=== PATIENT | female | born 1950 | race Caucasian/White ===

== ENCOUNTER 2019-07-24 03:14 | Inpatient (IN) ==
[2019-07-24] MEDS ORDERED: Isovue-370 500 ML BOTTLE IVP ONE ×2 (04:16→04:18)
[2019-07-24] MEDS ORDERED: *HR* FentaNYL (PF) 100 MCG/2 ML VIAL IVP ONE ×2 (04:22→06:20)
[2019-07-24] MEDS ORDERED: Ondansetron 4 MG/2 ML VIAL IVP PRN (04:22)
[2019-07-24] MEDS ORDERED: 0.9 % Sodium Chloride 1,000 ML IVC ONE ×2 (04:22→05:54)
[2019-07-24 04:38] LABS: Hemoglobin 12.8 g/dL (11.5-15.4); Immature Granulocytes % 0.4 % (0-4); Lymphocytes # 0.5 K/mcL (0.6-4.6); Lymphocytes % 5.9 %; Mean Corpuscular Hemoglobin 27.9 pg (28.0-33.3); Mean Corpuscular Volume 87.3 fL (83.0-100.0); Mean Platelet Volume 9.7 fL (9.4-12.4); Monocytes # 0.4 K/mcL (0.0-1.3); Monocytes % 4.5 %; Neutrophils # 7.5 K/mcL (1.6-8.9); Platelet Count 220 K/mcL (140-400); Red Blood Count 4.58 M/mcL (3.82-4.97); Segmented Neutrophils % 89.2 %; White Blood Count 8.4 K/mcL (4.3-11.1)
[2019-07-24 04:42] LABS: INR 1.1; Prothrombin Time 12.8 Seconds (9.4-12.1)
[2019-07-24 04:45] LABS: Activated Partial Thrombo Time 30.1 Seconds (26.0-36.0)
[2019-07-24 05:02] LABS: Alanine Aminotransferase 92 Units/L (7-52); Albumin/Globulin Ratio 1.2 (1.1-2.2); Alkaline Phosphatase 340 Units/L (34-104); Aspartate Amino Transferase 272 Units/L (13-39); BUN/Creatinine Ratio 20 (6-26); Bilirubin,Direct 0.3 mg/dL (0.0-0.2); Bilirubin,Indirect 0.6 mg/dL (0.0-1.0); Bilirubin,Total 0.9 mg/dL (0.3-1.0); Blood Urea Nitrogen 17 mg/dL (8-23); Calcium 9.3 mg/dL (8.6-10.3); Carbon Dioxide 23 mEq/L (23-29); Chloride 104 mEq/L (98-107); Globulin 3.3 g/dL (2.4-3.5); Glucose 170 mg/dL (70-105); Lipase 303 Units/L (11-82); Osmolality,Calculated 290 (280-300); Potassium 3.5 mEq/L (3.5-5.1); Sodium 137 mEq/L (136-145); Total Protein 7.3 g/dL (6.4-8.9); Troponin I < 0.03 ng/mL (< 0.04); eGFR For African Americans > 60 (> 60); eGFR For Non-African Americans > 60 (> 60)
[2019-07-24] MEDS: Piperacillin/Tazobactam 3.375 GM in 0.9 % Sodium Chloride Mini Bag 100 ML IVPB SCH ×2 (07:10→16:09)
[2019-07-24] MEDS ORDERED: *HR* HYDROmorphone 2 MG TABLET PO PRN (08:08)
[2019-07-24] MEDS ORDERED: Famotidine 20 MG/2 ML VIAL IVP ONE (08:08)
[2019-07-24] MEDS ORDERED: *HR* OxyCODONE Immed Rel 5 MG TABLET PO PRN (08:08)
[2019-07-24] MEDS ORDERED: *HR* HYDROmorphone PF 0.5 MG/0.5 ML SYRINGE IVP PRN (08:08)
[2019-07-24] MEDS ORDERED: Pregabalin 75 MG CAPSULE PO ONE (08:08)
[2019-07-24] MEDS ORDERED: *HR* Promethazine 25 MG/ML VIAL IVP PRN (08:08)
[2019-07-24] MEDS ORDERED: *HR* Labetalol 20 MG/4 ML SYRINGE IVP PRN (08:08)
[2019-07-24] MEDS ORDERED: Acetaminophen IV 1,000 MG/100 ML INFUS..BTL IVPB ONE (08:08)
[2019-07-24] MEDS ORDERED: *HR* Succinylcholine 200 MG/10 ML VIAL IVP ONE (08:27)
[2019-07-24] MEDS ORDERED: *HR* Rocuronium Bromide 50 MG/5 ML VIAL ONE ×2 (08:27→10:41)
[2019-07-24] MEDS ORDERED: Ondansetron 4 MG/2 ML VIAL ONE (08:28)
[2019-07-24] MEDS ORDERED: Lidocaine -MPF 2% 2 ML VIAL ONE (08:28)
[2019-07-24] MEDS ORDERED: *HR* Phenylephrine 10 MG/ML VIAL ONE (08:28)
[2019-07-24] MEDS ORDERED: *HR* Midazolam HCl 2 MG/2 ML VIAL ONE (08:28)
[2019-07-24] MEDS ORDERED: *HR* Propofol 200 MG/20 ML VIAL IVP ONE (08:28)
[2019-07-24] MEDS ORDERED: Dexamethasone 4 MG/ML VIAL ONE (08:28)
[2019-07-24] MEDS ORDERED: *HR* PHENYLEPHRINE 1,000 MCG/10 ML SYRINGE IVP ONE (08:28)
[2019-07-24] MEDS ORDERED: *HR* FentaNYL (PF) 100 MCG/2 ML VIAL ONE (08:28)
[2019-07-24] MEDS ORDERED: Albumin Human 5% 0 GM/0 ML IV.SOLN ONE (08:33)
[2019-07-24] MEDS ORDERED: *HR* Vasopressin 20 UNIT/ML VIAL ONE (08:34)
[2019-07-24] MEDS ORDERED: D5% in Water 0 ML ONE (08:34)
[2019-07-24] MEDS ORDERED: *HR* Norepinephrine 4 MG/4 ML VIAL IVC ONE (08:34)
[2019-07-24] MEDS ORDERED: Acetaminophen IV 1,000 MG/100 ML INFUS..BTL ONE (09:38)
[2019-07-24] MEDS ORDERED: Famotidine 20 MG/2 ML VIAL ONE (09:38)
[2019-07-24] MEDS ORDERED: *HR* HYDROMORPHONE 2 MG/ML VIAL ONE (10:27)
[2019-07-24] MEDS ORDERED: Lidocaine -MPF 4% 5 ML AMPUL ONE (11:03)
[2019-07-24] MEDS: Ondansetron 4 MG/2 ML VIAL IVP PRN (13:43)
[2019-07-24] MEDS: 0.9 % Sodium Chloride 1,000 ML IVC SCH (13:45)
[2019-07-24] MEDS: *HR* Heparin 5,000 UNIT/ML VIAL SQ SCH (16:07)
[2019-07-24] MEDS: Ketorolac 15 MG/ML VIAL IVP PRN (16:08)
[2019-07-24] MEDS: Acetaminophen IV 1,000 MG/100 ML INFUS..BTL IVPB SCH (18:05)
[2019-07-25] MEDS: 0.9 % Sodium Chloride 1,000 ML IVC SCH ×3 (00:10→13:45)
[2019-07-25] MEDS: Acetaminophen IV 1,000 MG/100 ML INFUS..BTL IVPB SCH ×4 (00:12→18:24)
[2019-07-25] MEDS: Piperacillin/Tazobactam 3.375 GM in 0.9 % Sodium Chloride Mini Bag 100 ML IVPB SCH ×4 (00:15→23:16)
[2019-07-25] MEDS: *HR* Heparin 5,000 UNIT/ML VIAL SQ SCH ×4 (00:15→23:18)
[2019-07-25 06:39] LABS: Hematocrit 33.7 % (35.3-44.9); Mean Corpuscular HGB Conc 32.3 g/dL (31.6-35.5); Mean Corpuscular Hemoglobin 28.3 pg (28.0-33.3); Mean Corpuscular Volume 87.5 fL (83.0-100.0); Mean Platelet Volume 10.4 fL (9.4-12.4); Platelet Count 171 K/mcL (140-400); Red Blood Count 3.85 M/mcL (3.82-4.97); Red Cell Distribution Width 13.4 % (11.5-14.5)
[2019-07-25 06:42] LABS: Hemoglobin 10.9 g/dL (11.5-15.4); White Blood Count 13.5 K/mcL (4.3-11.1)
[2019-07-25 06:53] LABS: BUN/Creatinine Ratio 28 (6-26); Blood Urea Nitrogen 21 mg/dL (8-23); Calcium 8.1 mg/dL (8.6-10.3); Carbon Dioxide 23 mEq/L (23-29); Chloride 111 mEq/L (98-107); Glucose 111 mg/dL (70-105); Osmolality,Calculated 294 (280-300); Potassium 3.9 mEq/L (3.5-5.1); Sodium 140 mEq/L (136-145); eGFR For African Americans > 60 (> 60); eGFR For Non-African Americans > 60 (> 60)
[2019-07-25] MEDS ORDERED: Lidocaine -MPF 1% 5 ML AMPUL INFILT ONE (08:32)
[2019-07-25] MEDS ORDERED: *HR* LORazepam 2 MG/ML VIAL IVP PRN (08:38)
[2019-07-25] MEDS ORDERED: *HR* Dextrose 50 % in Water (Syg) 50 ML SYRINGE IVP PRN (09:37)
[2019-07-25] MEDS ORDERED: Dextrose Gel 15 GM/37.5 ML TUBE PO PRN ×2 (09:37)
[2019-07-25] MEDS ORDERED: D5% in Water 1,000 ML IVC PRN (09:37)
[2019-07-25 09:50] LABS: Bacteria,Urine Moderate per hpf (None-Few); Bilirubin,Urine Small (Negative); Blood,Urine Negative (Negative); Clarity,Urine Cloudy (Clear); Color,Urine Dark Yellow (Yellow); Glucose,Urine (UA) Normal (Normal); Hyaline Casts,Urine Few per lpf (None-Few); Leukocyte Esterase,Urine Small (Negative); Nitrite,Urine Negative (Negative); PH,Urine 5.5 pH Units (5.0-8.0); Protein,Urine Trace mg/dL (Neg-Trace); Specific Gravity,Urine > 1.030 (1.010-1.025); Squamous Epithelial Cell,Urine Many per lpf (None-Few); Urobilinogen,Urine Normal (Normal); WBC,Urine 15-30 per hpf (0-3)
[2019-07-25 09:51] LABS: Ketones,Urine Trace mg/dL (Negative)
[2019-07-25 10:14] LABS: Calcium Oxalate Crystals,Urine Present
[2019-07-25 10:16] LABS: RBC,Urine Present per hpf (0-3)
[2019-07-25] MEDS ORDERED: D10% in Water 500 ML IVC PRN (13:37)
[2019-07-25] MEDS: Insulin LISPRO 300 UNITS/3 ML VIAL SQ SCH ×3 (13:46→21:10)
[2019-07-25 14:03] LABS: Magnesium 1.4 mg/dL (1.6-2.6); Phosphorous 2.7 mg/dL (2.7-4.5); Triglycerides 60 mg/dL (< 150)
[2019-07-25] MEDS ORDERED: Magnesium Sulfate 1 GM/102 ML PIGGYBACK IVPB ONE (15:24)
[2019-07-25] MEDS: Ondansetron 4 MG/2 ML VIAL IVP PRN (16:22)
[2019-07-25] MEDS ORDERED: Clinimix E 5%-15% SOLUTION 2,000 ML with MVI, adult with vitamin K 10 ML IVC SCH (17:00)
[2019-07-26] MEDS: Acetaminophen IV 1,000 MG/100 ML INFUS..BTL IVPB SCH ×4 (00:27→18:20)
[2019-07-26 04:30] LABS: Basophils % 0.1 %; Eosinophils % 0.5 %; Hematocrit 28.7 % (35.3-44.9); Immature Granulocytes % 0.5 % (0-4); Lymphocytes # 1.2 K/mcL (0.6-4.6); Lymphocytes % 13.7 %; Mean Corpuscular Hemoglobin 27.6 pg (28.0-33.3); Mean Corpuscular Volume 89.1 fL (83.0-100.0); Mean Platelet Volume 9.9 fL (9.4-12.4); Monocytes # 0.3 K/mcL (0.0-1.3); Monocytes % 3.4 %; Platelet Count 185 K/mcL (140-400); Red Blood Count 3.22 M/mcL (3.82-4.97); Red Cell Distribution Width 13.4 % (11.5-14.5); Segmented Neutrophils % 81.8 %; White Blood Count 8.6 K/mcL (4.3-11.1)
[2019-07-26 04:37] LABS: Hemoglobin 8.9 g/dL (11.5-15.4)
[2019-07-26 04:45] LABS: BUN/Creatinine Ratio 29 (6-26); Blood Urea Nitrogen 19 mg/dL (8-23); Calcium 8.1 mg/dL (8.6-10.3); Carbon Dioxide 27 mEq/L (23-29); Chloride 108 mEq/L (98-107); Glucose 121 mg/dL (70-105); Magnesium 1.7 mg/dL (1.6-2.6); Osmolality,Calculated 288 (280-300); Phosphorous 1.6 mg/dL (2.7-4.5); Potassium 3.3 mEq/L (3.5-5.1); Sodium 137 mEq/L (136-145); eGFR For African Americans > 60 (> 60); eGFR For Non-African Americans > 60 (> 60)
[2019-07-26] MEDS: Insulin LISPRO 300 UNITS/3 ML VIAL SQ SCH ×6 (05:07→20:19)
[2019-07-26] MEDS: *HR* Heparin 5,000 UNIT/ML VIAL SQ SCH ×2 (05:53→15:23)
[2019-07-26] MEDS: 0.9 % Sodium Chloride 1,000 ML IVC SCH ×3 (06:02→18:18)
[2019-07-26] MEDS ORDERED: Potassium Chloride 40 MEQ, Lidocaine 1% 2 ML in 0.9 % Sodium Chloride 500 ML IVPB ONE (08:39)
[2019-07-26] MEDS: Piperacillin/Tazobactam 3.375 GM in 0.9 % Sodium Chloride Mini Bag 100 ML IVPB SCH ×2 (09:51→15:21)
[2019-07-26] MEDS: Ondansetron 4 MG/2 ML VIAL IVP PRN ×2 (12:22→18:42)
[2019-07-26] MEDS ORDERED: Clinimix E 5%-15% SOLUTION 2,000 ML with MVI, adult with vitamin K 10 ML IVC SCH (17:00)
[2019-07-26] MEDS: Pantoprazole 40 MG VIAL IVP SCH (18:20)
[2019-07-27] MEDS: Ondansetron 4 MG/2 ML VIAL IVP PRN ×2 (00:43→06:47)
[2019-07-27] MEDS: Piperacillin/Tazobactam 3.375 GM in 0.9 % Sodium Chloride Mini Bag 100 ML IVPB SCH ×3 (00:52→15:25)
[2019-07-27] MEDS: Acetaminophen IV 1,000 MG/100 ML INFUS..BTL IVPB SCH ×4 (00:58→17:48)
[2019-07-27] MEDS: *HR* Heparin 5,000 UNIT/ML VIAL SQ SCH ×3 (00:58→15:27)
[2019-07-27] MEDS: Insulin LISPRO 300 UNITS/3 ML VIAL SQ SCH ×6 (01:06→20:14)
[2019-07-27 04:24] LABS: Basophils % 0.2 %; Eosinophils # 0.2 K/mcL (0.0-0.6); Hematocrit 27.1 % (35.3-44.9); Hematocrit 27.9 % (35.3-44.9); Hemoglobin 8.6 g/dL (11.5-15.4); Immature Granulocytes % 1.2 % (0-4); Lymphocytes # 1.3 K/mcL (0.6-4.6); Lymphocytes % 15.7 %; Mean Corpuscular HGB Conc 30.8 g/dL (31.6-35.5); Mean Corpuscular HGB Conc 31.7 g/dL (31.6-35.5); Mean Corpuscular Hemoglobin 27.6 pg (28.0-33.3); Mean Corpuscular Hemoglobin 28.2 pg (28.0-33.3); Mean Corpuscular Volume 88.9 fL (83.0-100.0); Mean Corpuscular Volume 89.4 fL (83.0-100.0); Mean Platelet Volume 9.9 fL (9.4-12.4); Monocytes # 0.3 K/mcL (0.0-1.3); Monocytes % 3.2 %; Neutrophils # 6.5 K/mcL (1.6-8.9); Platelet Count 183 K/mcL (140-400); Platelet Count 184 K/mcL (140-400); Red Blood Count 3.05 M/mcL (3.82-4.97); Red Blood Count 3.12 M/mcL (3.82-4.97); Red Cell Distribution Width 13.4 % (11.5-14.5); Segmented Neutrophils % 77.7 %; White Blood Count 8.3 K/mcL (4.3-11.1)
[2019-07-27 04:38] LABS: BUN/Creatinine Ratio 26 (6-26); Blood Urea Nitrogen 13 mg/dL (8-23); Calcium 7.7 mg/dL (8.6-10.3); Carbon Dioxide 25 mEq/L (23-29); Chloride 108 mEq/L (98-107); Glucose 134 mg/dL (70-105); Magnesium 1.6 mg/dL (1.6-2.6); Osmolality,Calculated 286 (280-300); Phosphorous 2.9 mg/dL (2.7-4.5); Potassium 3.3 mEq/L (3.5-5.1); Sodium 137 mEq/L (136-145); eGFR For African Americans > 60 (> 60); eGFR For Non-African Americans > 60 (> 60)
[2019-07-27] MEDS: Pantoprazole 40 MG VIAL IVP SCH ×2 (06:40→17:45)
[2019-07-27] MEDS: 0.9 % Sodium Chloride 1,000 ML IVC SCH (10:38)
[2019-07-27] MEDS ORDERED: Clinimix E 5%-15% SOLUTION 2,000 ML with MVI, adult with vitamin K 10 ML IVC SCH (17:00)
[2019-07-28] MEDS: Piperacillin/Tazobactam 3.375 GM in 0.9 % Sodium Chloride Mini Bag 100 ML IVPB SCH ×4 (00:01→23:43)
[2019-07-28] MEDS: *HR* Heparin 5,000 UNIT/ML VIAL SQ SCH ×4 (00:02→23:42)
[2019-07-28] MEDS: Insulin LISPRO 300 UNITS/3 ML VIAL SQ SCH ×7 (00:29→23:38)
[2019-07-28 00:36] LABS: Basophils % 0.3 %; Eosinophils # 0.2 K/mcL (0.0-0.6); Eosinophils % 3.4 %; Hematocrit 28.3 % (35.3-44.9); Hemoglobin 8.9 g/dL (11.5-15.4); Lymphocytes # 1.2 K/mcL (0.6-4.6); Lymphocytes % 17.7 %; Mean Corpuscular HGB Conc 31.4 g/dL (31.6-35.5); Mean Corpuscular Hemoglobin 27.9 pg (28.0-33.3); Mean Corpuscular Volume 88.7 fL (83.0-100.0); Mean Platelet Volume 9.6 fL (9.4-12.4); Monocytes # 0.5 K/mcL (0.0-1.3); Monocytes % 6.4 %; Neutrophils # 4.9 K/mcL (1.6-8.9); Platelet Count 200 K/mcL (140-400); Red Blood Count 3.19 M/mcL (3.82-4.97); Red Cell Distribution Width 13.1 % (11.5-14.5); Segmented Neutrophils % 70.2 %
[2019-07-28 00:47] LABS: BUN/Creatinine Ratio 22 (6-26); Blood Urea Nitrogen 11 mg/dL (8-23); Calcium 8.2 mg/dL (8.6-10.3); Carbon Dioxide 27 mEq/L (23-29); Chloride 106 mEq/L (98-107); Glucose 129 mg/dL (70-105); Magnesium 1.6 mg/dL (1.6-2.6); Osmolality,Calculated 285 (280-300); Potassium 3.4 mEq/L (3.5-5.1); Sodium 137 mEq/L (136-145); eGFR For African Americans > 60 (> 60); eGFR For Non-African Americans > 60 (> 60)
[2019-07-28] MEDS: Acetaminophen IV 1,000 MG/100 ML INFUS..BTL IVPB SCH ×4 (05:20→17:29)
[2019-07-28] MEDS: Pantoprazole 40 MG VIAL IVP SCH ×2 (05:20→17:29)
[2019-07-28] MEDS: Ketorolac 15 MG/ML VIAL IVP PRN (11:28)
[2019-07-28] MEDS ORDERED: Clinimix E 5%-15% SOLUTION 2,000 ML with MVI, adult with vitamin K 10 ML IVC SCH (17:00)
[2019-07-28] MEDS: Ondansetron 4 MG/2 ML VIAL IVP PRN (20:12)
[2019-07-29] MEDS: Acetaminophen IV 1,000 MG/100 ML INFUS..BTL IVPB SCH ×2 (00:53→07:41)
[2019-07-29] MEDS: Insulin LISPRO 300 UNITS/3 ML VIAL SQ SCH ×3 (04:02→13:03)
[2019-07-29] MEDS: Pantoprazole 40 MG VIAL IVP SCH (05:18)
[2019-07-29] MEDS: Ketorolac 15 MG/ML VIAL IVP PRN (05:27)
[2019-07-29 06:15] LABS: BUN/Creatinine Ratio 27 (6-26); Blood Urea Nitrogen 14 mg/dL (8-23); Calcium 8.2 mg/dL (8.6-10.3); Carbon Dioxide 28 mEq/L (23-29); Chloride 104 mEq/L (98-107); Glucose 117 mg/dL (70-105); Magnesium 1.7 mg/dL (1.6-2.6); Osmolality,Calculated 288 (280-300); Phosphorous 3.7 mg/dL (2.7-4.5); Potassium 3.4 mEq/L (3.5-5.1); Sodium 138 mEq/L (136-145); eGFR For African Americans > 60 (> 60); eGFR For Non-African Americans > 60 (> 60)
[2019-07-29] MEDS: Piperacillin/Tazobactam 3.375 GM in 0.9 % Sodium Chloride Mini Bag 100 ML IVPB SCH ×2 (07:40→16:24)
[2019-07-29] MEDS: *HR* Heparin 5,000 UNIT/ML VIAL SQ SCH ×2 (07:41→16:24)
[2019-07-29] MEDS ORDERED: *HR* OxyCODONE/APAP 5/325 TABLET PO PRN (11:07)
[2019-07-29] MEDS ORDERED: Clinimix E 5%-15% SOLUTION 2,000 ML with MVI, adult with vitamin K 10 ML IVC SCH (11:07)
[2019-07-29] MEDS ORDERED: Ondansetron 4 MG/2 ML VIAL IVP ONE (12:47)
[2019-07-29] MEDS ORDERED: Metoclopramide 10 MG/2 ML VIAL IVP ONE (12:48)
[2019-07-29] MEDS ORDERED: Ondansetron ODT 4 MG TAB.RAPDIS SL PRN (12:49)
[2019-07-29] MEDS: polyethylene glycoL 3350 17 GM POWD.PACK PO SCH (13:03)
[2019-07-29] MEDS: Ibuprofen 800 MG TABLET PO PRN (15:14)
[2019-07-29] MEDS: clonazePAM 0.5 MG TABLET PO SCH ×2 (15:14→20:03)
[2019-07-30] MEDS: Piperacillin/Tazobactam 3.375 GM in 0.9 % Sodium Chloride Mini Bag 100 ML IVPB SCH ×2 (00:28→08:19)
[2019-07-30] MEDS: Ibuprofen 800 MG TABLET PO PRN (00:28)
[2019-07-30] MEDS: *HR* Heparin 5,000 UNIT/ML VIAL SQ SCH ×2 (00:28→08:19)
[2019-07-30] MEDS: polyethylene glycoL 3350 17 GM POWD.PACK PO SCH (08:19)
[2019-07-30] MEDS: clonazePAM 0.5 MG TABLET PO SCH ×2 (08:20→14:40)
[2019-07-30 11:14] VITALS: BP 137/81
== END 2019-07-30 14:41 | DRG 220 ==
LOC: 3ANU 03:14 → EMEROOARM 03:14 → 3ANU 09:10
PROVIDERS: ADMIT Surgery; ATTEND Surgery